=== PATIENT | male | born 1955 | race Caucasian/White ===

== ENCOUNTER 2022-07-04 10:13 | Inpatient (IN) | payer MEDICARE, OTHER ==
[2022-07-04 10:54] LABS: Hemoglobin 8.8 g/dL (14.0-18.0); Mean Corpuscular HGB CONC 32.6 g/dL (32.0-36.0); Mean Corpuscular Hemoglobin 32.1 pg (27.0-31.0); Mean Corpuscular Volume 98.4 fl (78.0-98.0); Mean Platelet Volume 6.4 fL (7.4-10.4); Platelet Count 743 10x3/uL (130-400); Red Blood Cell (RBC) Count 2.74 mill/uL (4.70-6.10); White Blood Cell (WBC) Count 52.2 10x3/uL (4.8-10.8)
[2022-07-04 11:10] LABS: INR-International Normal Ratio 1.1; Prothrombin Time 14.7 sec (12.0-14.7)
[2022-07-04 11:11] LABS: PTT 32.3 sec (22.9-36.1)
[2022-07-04 11:20] LABS: Reflex for Review?? YES
[2022-07-04 11:21] LABS: Band 23 % (5-11); Lymphocytes 1 % (21-51); MDiff Complete? YES; Monocytes 9 % (0-10); Neutrophil 67 % (42-75); Platelet Morphology Comment Appears Increased; Schistocytes SLIGHT = 2-5 cells (100X) (0-1/hpf); Toxic Granulation SLIGHT; Vacuoles SLIGHT
[2022-07-04 11:24] LABS: ALT (SGPT) 39 U/L (8-55); AST (SGOT) 28 U/L (5-34); Albumin 3.4 g/dL (3.4-4.8); Alkaline Phosphatase 152 U/L (40-110); Anion Gap 15 mmol/L (10-20); BUN (Urea Nitrogen) 26 mg/dL (8.4-25.7); Bilirubin, Total 0.4 mg/dL (0.2-1.2); Calc. Creatinine Clearance 0 mL/min (70-130); Calcium 8.5 mg/dL (7.8-10.44); Carbon Dioxide 24 mmol/L (23-31); Chloride 104 mmol/L (98-107); Estimated GFR 100; Globulin 2.6 g/dL (2.4-3.5); Glucose 102 mg/dL (80-115); Potassium 3.5 mmol/L (3.5-5.1); Sodium 139 mmol/L (136-145)
[2022-07-04 12:07] LABS: Magnesium 1.9 mg/dL (1.6-2.6)
[2022-07-04] MEDS ORDERED: Apixaban 5 MG TAB PO SCH ×2 (12:15→22:30)
[2022-07-04] MEDS ORDERED: Sulfameth/Trimethoprim DS 800-160mg TAB ONE (12:22)
[2022-07-04] MEDS ORDERED: predniSONE 20 MG TAB ONE (12:24)
[2022-07-04 13:10] LABS: Bilirubin Negative (Negative); Blood, Urine Negative (Negative); Clarity Clear (Clear); Glucose, Urine (Dipstick) Normal (Negative); Ketone, Urine Negative (Negative); Leukocyte Negative Leu/uL (Negative); Nitrite Negative (Negative); Protein, Urine (Dipstick) Negative (Neg-Trace); Specific Gravity, Urine 1.016 (1.002-1.036); Urobilinogen Normal mg/dL (Less than 2); pH, Urine 5.5 (5.0-9.0)
[2022-07-04] MEDS ORDERED: valACYclovir 500 MG TAB PO SCH (13:45)
[2022-07-04 14:13] LABS: Lactic Acid 1.5 mmol/L (0.5-2.2)
[2022-07-04] MEDS ORDERED: Acetaminophen 325 MG TAB PO PRN (14:40)
[2022-07-04] MEDS ORDERED: Ondansetron PF 4 MG/2 ML Vial IVP PRN (14:40)
[2022-07-04] MEDS ORDERED: Sodium Chloride 0.9% 1,000 ML IV SCH (14:45)
[2022-07-04 19:00] LABS: Troponin I 0.136 ng/mL (< 0.028)
[2022-07-04] MEDS: Amiodarone 200 MG TAB PO SCH (21:38)
[2022-07-04 21:54] LABS: Troponin I 0.123 ng/mL (< 0.028)
[2022-07-04] MEDS ORDERED: Allopurinol 100 MG TAB PO SCH (22:30)
[2022-07-04] MEDS ORDERED: Rosuvastatin 10 MG TAB PO SCH (22:30)
[2022-07-05 05:00] LABS: Hemoglobin 7.3 g/dL (14.0-18.0); Mean Corpuscular HGB CONC 32.8 g/dL (32.0-36.0); Mean Corpuscular Hemoglobin 32.4 pg (27.0-31.0); Mean Corpuscular Volume 98.7 fl (78.0-98.0); Mean Platelet Volume 6.5 fL (7.4-10.4); Platelet Count 550 10x3/uL (130-400); RBC Distribution Width 18.1 % (11.5-14.5); Red Blood Cell (RBC) Count 2.25 mill/uL (4.70-6.10); White Blood Cell (WBC) Count 57.7 10x3/uL (4.8-10.8)
[2022-07-05 05:21] LABS: Anion Gap 10 mmol/L (10-20); BUN (Urea Nitrogen) 28 mg/dL (8.4-25.7); Calc. Creatinine Clearance 91 mL/min (70-130); Calcium 7.8 mg/dL (7.8-10.44); Carbon Dioxide 23 mmol/L (23-31); Chloride 109 mmol/L (98-107); Estimated GFR 98; Glucose 88 mg/dL (80-115); Potassium 3.8 mmol/L (3.5-5.1); Sodium 138 mmol/L (136-145)
[2022-07-05 06:05] LABS: Anisocytosis SLIGHT = 6-15 cells (100X) (0-5/hpf); Band 12 % (5-11); Hypersemented Neutrophil SLIGHT; Lymphocytes 1 % (21-51); MDiff Complete? YES; Macrocytosis SLIGHT = 6-15 cells (100X) (0-5/hpf); Monocytes 2 % (0-10); Neutrophil 85 % (42-75); Platelet Morphology Comment Appears Increased; Polychromasia SLIGHT = 2-3 cells (100X) (0-2/hpf)
[2022-07-05] MEDS ORDERED: Non-Formulary Item 1 EACH (Prednisone [Prednisone] 10 MG Tablet) PO SCH (09:00)
[2022-07-05 10:14] VITALS: BMI 23.3
[2022-07-05] MEDS: Metoprolol Tartrate 25 MG TAB PO SCH ×3 (10:22→22:06)
[2022-07-05] MEDS: predniSONE 50 MG TAB PO SCH (10:22)
[2022-07-05] MEDS: Apixaban 5 MG TAB PO SCH ×2 (10:23→22:06)
[2022-07-05] MEDS: Amiodarone 200 MG TAB PO SCH ×3 (10:23→22:06)
[2022-07-05 11:41] LABS: Critical Call w/ Read Back 322814
[2022-07-05] MEDS ORDERED: Tamsulosin HCl 0.4 MG CAP PO SCH (21:00)
[2022-07-05] MEDS ORDERED: Allopurinol 100 MG TAB PO SCH (21:00)
[2022-07-05] MEDS ORDERED: Rosuvastatin 10 MG TAB PO SCH (21:00)
[2022-07-06] MEDS: Amiodarone 200 MG TAB PO SCH (08:42)
[2022-07-06] MEDS: Apixaban 5 MG TAB PO SCH (08:42)
[2022-07-06] MEDS: Metoprolol Tartrate 25 MG TAB PO SCH (08:42)
[2022-07-06] MEDS: predniSONE 50 MG TAB PO SCH (08:42)
[2022-07-06 10:29] VITALS: BP 121/59; TEMP 97.5
[2022-07-06] MEDS ORDERED: Metoprolol Tartrate 25 MG TAB PO SCH (15:00)
[2022-07-06] MEDS ORDERED: Amiodarone 200 MG TAB PO SCH (21:00)
[2022-07-08] MEDS ORDERED: FLU VACC QS2022-23(65YR UP)/PF 240 MCG/0.7 ML SYRINGE IM ONE (09:00)
== END 2022-07-06 11:33 | disposition home or self-care (01) | DRG 309 ==
LOC: ERS 10:13 → ERHOLD 13:47 → 2NO 17:14
PROVIDERS: ADMIT Internal Medicine Cardiovascular Disease; ATTEND Internal Medicine
PROC: 5A2204Z Restoration of Cardiac Rhythm, Single (ICD-10-PCS; principal; 2022-07-04)
DX: I48.0 Paroxysmal atrial fibrillation (principal); C85.90 Non-Hodgkin lymphoma, unspecified, unspecified site; I24.8 Other forms of acute ischemic heart disease; Z20.822 Contact with and (suspected) exposure to COVID-19; I10 Essential (primary) hypertension; D63.8 Anemia in other chronic diseases classified elsewhere; I95.89 Other hypotension; Z86.718 Personal history of other venous thrombosis and embolism; Z98.890 Other specified postprocedural states; Z79.899 Other long term (current) drug therapy; Z79.52 Long term (current) use of systemic steroids; Z79.01 Long term (current) use of anticoagulants
CPT/HCPCS: 36415; 71045; 80048; 80053; 81003; 83605; 83735; 84443; 84484; 85025; 85060; 85610; 85730; 87040; 87086; 92960; 93005; 93010; 93306; 94760; J7050; J7512; U0003; U0005